=== PATIENT | female | born 1955 | race Caucasian/White ===

== ENCOUNTER 2017-12-13 05:20 | Day surgery (SDC) | payer OTHER ==
[2017-12-13] MEDS ORDERED: BUPIVACAINE 0.5% (SDV) 30 ML INJ (06:51)
[2017-12-13] MEDS ORDERED: CEFAZOLIN 1 GM/50 ML (PMX) 50 ML IVPB (07:00)
[2017-12-13] MEDS ORDERED: CEFAZOLIN 1 GM INJ (07:00)
[2017-12-13] MEDS ORDERED: PROPOFOL 20 ML (07:29)
[2017-12-13] MEDS ORDERED: FENTAnyl 50 MCG/ML VIAL (07:30)
[2017-12-13] MEDS ORDERED: MIDAZOLAM 1 MG/ML 2 ML INJ (07:30)
[2017-12-13] MEDS ORDERED: LIDOCAINE 1% (MDV) 20 ML INJ (07:30)
[2017-12-13] MEDS ORDERED: ONDANSETRON 4 MG INJ (07:36)
[2017-12-13] MEDS ORDERED: METOCLOPRAMIDE 10 MG INJ (07:37)
[2017-12-13] MEDS ORDERED: FAMOTIDINE 20 MG INJ (07:43)
[2017-12-13] MEDS: LIDOCAINE 1% (MPF) 30 ML INJ (07:47)
[2017-12-13] MEDS ORDERED: DEXAMETHASONE 4 MG/ML 1 ML INJ (07:50)
[2017-12-13] MEDS ORDERED: EPHEDrine SULFATE 50 MG/5 ML SYG (07:50)
[2017-12-13] MEDS: DEXAMETHASONE 4 MG/ML 1 ML INJ INJ (07:53)
[2017-12-13] MEDS: BUPIVACAINE 0.5% 30 ML VIAL INJ (07:54)
[2017-12-13] MEDS ORDERED: DIPHENHYDRAMINE 50 MG INJ IV (08:30)
[2017-12-13] MEDS ORDERED: OXYCODONE/ACETAMINOPHEN (5/325) TAB PO (08:30)
[2017-12-13] MEDS ORDERED: MEPERIDINE 25 MG INJ IV (08:30)
[2017-12-13] MEDS ORDERED: PROCHLORPERAZINE 10 MG INJ IV (08:30)
[2017-12-13] MEDS ORDERED: ONDANSETRON 4 MG INJ IV (08:30)
[2017-12-13] MEDS ORDERED: HYDROmorphONE (0.2 MG/ML) 10ML SYG IV (08:30)
[2017-12-13] MEDS ORDERED: FENTAnyl 50 MCG/ML VIAL IV (08:30)
== END 2017-12-13 11:11 | disposition home or self-care (01) ==
LOC: SDS 05:20
DX: M72.2 Plantar fascial fibromatosis (principal); I10 Essential (primary) hypertension; E11.9 Type 2 diabetes mellitus without complications; E78.5 Hyperlipidemia, unspecified; J45.909 Unspecified asthma, uncomplicated; E66.9 Obesity, unspecified; Z68.36 Body mass index [BMI] 36.0-36.9, adult
CPT/HCPCS: 28008; 82962

== ENCOUNTER 2018-02-07 09:54 | Day surgery (SDC) | payer OTHER | END 2018-02-07 14:37 | disposition home or self-care (01) | LOC: GIL 09:54 | DX: Z12.11 Encounter for screening for malignant neoplasm of colon (principal); D12.5 Benign neoplasm of sigmoid colon; K64.8 Other hemorrhoids; I10 Essential (primary) hypertension; E11.9 Type 2 diabetes mellitus without complications | CPT/HCPCS: 45380; 82962; 88305 ==